=== PATIENT | male | born 1980 | race Caucasian/White ===

== ENCOUNTER 2018-04-25 01:50 | Emergency (ER) | payer MEDICAID ==
[~2018-04-25] VITALS: Ht 172.7 cm; Wt 88.5 kg
[2018-04-25 01:57] VITALS: Ht 172.7 cm; Wt 88.5 kg
[2018-04-25 02:53] LABS: CALCIUM 8.5 mg/dL (8.5-10.1); CARBON DIOXIDE 20.5 mmol/L (21-32); CHLORIDE SERUM 100 mmol/L (98-107); CREATININE SERUM 0.8 mg/dL (0.7-1.3); GFR1 > 60 mL/min; GLUCOSE SERUM 112 mg/dL (74-106); POTASSIUM SERUM 3.7 mmol/L (3.5-5.1); SODIUM SERUM 134 mmol/L (136-145)
[2018-04-25 04:36] LABS: AMPHETAMINE QUAL UR NONE DETECTED (See below)
[2018-04-25 04:46] VITALS: BP 124/96
== END 2018-04-25 04:46 | disposition other institution (70) ==
LOC: ED 01:50
PROVIDERS: Emergency Medicine
DX: S01.511A Laceration without foreign body of lip, initial encounter (principal); F10.129 Alcohol abuse with intoxication, unspecified; X58.XXXA Exposure to other specified factors, initial encounter; Y93.89 Activity, other specified; Y92.89 Other specified places as the place of occurrence of the external cause; Y99.8 Other external cause status
CPT/HCPCS: 90715; G0480; J2001; J2060; J2704; J3411; J3475; J3490; J7030

== ENCOUNTER 2018-04-25 02:23 | Emergency (ER) | payer OTHER | END 2018-04-25 02:31 | disposition other institution (70) | LOC: ED 02:23 | DX: Z02.89 Encounter for other administrative examinations (principal) ==